=== PATIENT | female | born 1995 | race American Indian/Alaskan Native ===

== ENCOUNTER 2017-08-14 03:47 | Emergency (ER) | payer SELFPAY ==
[2017-08-14] MEDS ORDERED: LIDOCAINE VISCOUS 2% PO ONE (08:48)
[2017-08-14] MEDS ORDERED: MOTRIN PO ONE (08:48)
--- NOTE | 2017-08-14 09:33 | XRay Report ---
ROUTINE CHEST, TWO VIEWS: HISTORY: Difficulty breathing. The trachea, heart, mediastinal contour, lung mark and bony thorax are unremarkable. IMPRESSION: Normal chest x-ray.
--- NOTE | 2017-08-14 09:33 | XRay Report ---
AP AND LATERAL SOFT TISSUES OF THE NECK: History: Pain, discomfort, sensation of throat closing. Findings: The epiglottis is not enlarged. No prevertebral soft tissue swelling is apparent. No mass density or foreign body is evident. There is mild enlargement of the palatine and adenoid tonsils. There is mild narrowing of the airway at the level of the tonsils. IMPRESSION: Mild tonsillar enlargement.
[2017-08-14 09:39] LABS: Basophils % (Auto) 0.4 % (0.0-1.8); Eosinophils % (Auto) 0.9 % (0.0-4.3); Hematocrit 35.9 % (30.3-42.9); Mean Corpuscular HGB Conc 33 % (30-34); Mean Corpuscular Hemoglobin 28 pg (28-32); Mean Corpuscular Volume 83 fl (79-97); Platelet Count 302 K/mm3 (140-440); Red Blood Count 4.34 M/mm3 (3.65-5.03); Red Cell Distribution Width 13.5 % (13.2-15.2); White Blood Count 6.4 K/mm3 (4.5-11.0)
--- NOTE | 2017-08-14 09:52 | Emergency Department Report ---
ED ENT HPI - General Chief complaint: Sore Throat Stated complaint: SORE THROAT Time Seen by Provider: 08/14/17 08:32 Source: patient Mode of arrival: Ambulatory Limitations: No Limitations - History of Present Illness Initial comments: This is a 22-year-old female nontoxic, well nourished in appearance, no acute signs of distress presents to the ED with c/o of sore throat and sensation of throat closing x1 day. Patient denies any rash. Denies any shortness of breathe , fever, chills, nausea, vomiting, numbness, tingling, headache, or stiff neck. Patient states she does get intermittent chest pain, denies chest pain any. Patient denies any cough. Denies any past medical history or allergies. MD complaint: sore throat -: Gradual, days(s) (1) Location: throat Severity: mild Severity scale (0 -10): 8 Quality: aching Consistency: constant Improves with: none Worsens with: swallowing Associated Symptoms: pain with swallowing, sore throat. denies: fever, cough, gum swelling, toothache, tinnitus, hearing loss, discharge from ear, rhinorrhea - Related Data Previous Rx's Medication Instructions Recorded Last Taken Type Amoxicillin 500 mg PO Q12H #20 capsule 08/14/17 Unknown Rx Nystas/Diphen/Xyl Visc/Mylanta 15 ml MM Q8H 10 Days ud 08/14/17 Unknown Rx [Magic Mouthwash] Allergies Allergy/AdvReac Type Severity Reaction Status Date / Time No Known Allergies Allergy Unverified 08/14/17 04:19 ED Dental HPI - General Chief complaint: Sore Throat Stated complaint: SORE THROAT Time Seen by Provider: 08/14/17 08:32 Source: patient Mode of arrival: Ambulatory Limitations: No Limitations - Related Data Previous Rx's Medication Instructions Recorded Last Taken Type Amoxicillin 500 mg PO Q12H #20 capsule 08/14/17 Unknown Rx Nystas/Diphen/Xyl Visc/Mylanta 15 ml MM Q8H 10 Days ud 08/14/17 Unknown Rx [Magic Mouthwash] Allergies Allergy/AdvReac Type Severity Reaction Status Date / Time No Known Allergies Allergy Unverified 08/14/17 04:19 ED Review of Systems ROS: Stated complaint: SORE THROAT Other details as noted in HPI Constitutional: denies: chills, fever Eyes: denies: eye pain, eye discharge, vision change ENT: throat pain. denies: ear pain Respiratory: denies: cough, shortness of breath, wheezing Cardiovascular: denies: chest pain, palpitations Endocrine: no symptoms reported Gastrointestinal: denies: abdominal pain, nausea, diarrhea Genitourinary: denies: urgency, dysuria, discharge Musculoskeletal: denies: back pain, joint swelling, arthralgia Skin: denies: rash, lesions Neurological: denies: headache, weakness, paresthesias Psychiatric: denies: anxiety, depression Hematological/Lymphatic: denies: easy bleeding, easy bruising ED Past Medical Hx - Past Medical History Previous Medical History?: No - Surgical History Past Surgical History?: No - Social History Smoking Status: Current Every Day Smoker Substance Use Type: Marijuana - Medications Home Medications: Home Medications Medication Instructions Recorded Confirmed Last Taken Type Amoxicillin 500 mg PO Q12H #20 capsule 08/14/17 Unknown Rx Nystas/Diphen/Xyl Visc/Mylanta 15 ml MM Q8H 10 Days udc 08/14/17 Unknown Rx [Magic Mouthwash] ED Physical Exam - General Limitations: No Limitations General appearance: alert, in no apparent distress - Head Head exam: Present: atraumatic, normocephalic - Eye Eye exam: Present: normal appearance, PERRL, EOMI. Absent: scleral icterus, conjunctival injection, nystagmus, periorbital swelling, periorbital tenderness Pupils: Present: normal accommodation - ENT ENT exam: Present: mucous membranes moist, TM's normal bilaterally, normal external ear exam - Expanded ENT Exam Expanded Ear exam: Present: normal external inspection Mouth exam: Present: normal external inspection, tongue normal. Absent: drooling, trismus, muffled voice, tongue elevation, laceration Teeth exam: Present: normal inspection Throat exam: Positive: tonsillar erythema, tonsillomegaly (2+), tonsillar exudate, other (Uvula mildine with no abscess or swelling ntoed. ). Negative: R peritonsillar mass, L peritonsillar mass - Neck Neck exam: Present: normal inspection, full ROM. Absent: tenderness, meningismus, lymphadenopathy, thyromegaly - Respiratory Respiratory exam: Present: normal lung sounds bilaterally. Absent: respiratory distress, wheezes, rales, rhonchi, stridor, chest wall tenderness, accessory muscle use, decreased breath sounds, prolonged expiratory - Cardiovascular Cardiovascular Exam: Present: regular rate, normal rhythm, normal heart sounds. Absent: irregular rhythm, systolic murmur, diastolic murmur, rubs, gallop - GI/Abdominal GI/Abdominal exam: Present: soft, normal bowel sounds. Absent: distended, tenderness, guarding, rebound, rigid, diminished bowel sounds - Rectal Rectal exam: Present: deferred - Extremities Exam Extremities exam: Present: normal inspection, full ROM, normal capillary refill. Absent: tenderness, pedal edema, joint swelling, calf tenderness - Back Exam Back exam: Present: normal inspection, full ROM. Absent: tenderness, CVA tenderness (R), CVA tenderness (L), muscle spasm, paraspinal tenderness, vertebral tenderness, rash noted - Neurological Exam Neurological exam: Present: alert, oriented X3, CN II-XII intact, normal gait, reflexes normal - Psychiatric Psychiatric exam: Present: normal affect, normal mood - Skin Skin exam: Present: warm, dry, intact, normal color. Absent: rash ED Course Vital Signs 08/14/17 08/14/17 03:50 04:14 Temperature 98.1 F 98.1 F Pulse Rate 92 H 90 Respiratory 18 17 Rate Blood Pressure 114/62 114/62 O2 Sat by Pulse 99 99 Oximetry - Reevaluation(s) Reevaluation #1: 08/14/17 09:54 Patient is speaking in full sentences with no signs of distress noted. ED Medical Decision Making - Lab Data Result diagrams: 08/14/17 09:23 - Medical Decision Making This is a 22-year-old female presents with tonsillitis with exudate. Patient was examined by me and patient is stable. X-ray of chest and neck soft tissue obtained and the radiologist with normal examination and tonsillitis. Patient received Solu-Medrol prior to the x-rays due to sensation of throat closing. Patient also received viscous lidocaine. The patient's symptoms of sore throat and sensation of throat closing has subsided and improving. EKG normal sinus rhythm with no ST abnormalities. CBC, BMP, troponin, cardiac CK within normal limits. Patient was treated with amox at discharge. Patient was instructed Follow-up with a primary care doctor in 3-5 days or if symptoms worsen and continue return to emergency room as soon as possible. At time time of discharge, the patient does not seem toxic or ill in appearance. No acute signs of distress noted. Patient agrees to discharge treatment plan of care. No further questions noted by the patient. Critical care attestation.: If time is entered above; I have spent that time in minutes in the direct care of this critically ill patient, excluding procedure time. ED Disposition Clinical Impression: Tonsillitis with exudate Disposition: TO HOME OR SELFCARE Is pt being admited?: No Does the pt Need Aspirin: No Condition: Stable Instructions: Tonsillitis (ED), Amoxicillin (By mouth) Additional Instructions: Follow-up with a primary care doctor in 3-5 days or if symptoms worsen and continue return to emergency room as soon as possible. Prescriptions: Amoxicillin 500 mg PO Q12H #20 capsule Nystas/Diphen/Xyl Visc/Mylanta [Magic Mouthwash] 15 ml MM Q8H 10 Days ud Referrals: PRIMARY CAREMD [Primary Care Provider] - 3-5 Days ILIANA VALADEZ MD [Staff Physician] - 3-5 Days [facility] [Outside] - 3-5 Days [facility] [Outside] - 3-5 Days Forms: Work/School Release Form(ED)
[2017-08-14 10:08] LABS: Creatine Kinase MB 2.4 ng/mL (0.0-4.0)
[2017-08-14 10:09] LABS: Anion Gap 18 mmol/L; BUN/Creatinine Ratio 13; Blood Urea Nitrogen 10 mg/dL (7-17); Calcium 9.4 mg/dL (8.4-10.2); Carbon Dioxide 24 mmol/L (22-30); Chloride 101.5 mmol/L (98-107); Creatine Kinase 211 units/L (30-135); Glucose 85 mg/dL (65-100); Potassium 4.4 mmol/L (3.6-5.0); Sodium 139 mmol/L (137-145)
[2017-08-14 10:12] VITALS: BP 108/50
== END 2017-08-14 11:46 | disposition home or self-care (01) ==
LOC: ED 03:47
DX: J03.90 Acute tonsillitis, unspecified (principal); F12.10 Cannabis abuse, uncomplicated; F17.200 Nicotine dependence, unspecified, uncomplicated
CPT/HCPCS: 36415; 70360; 71020; 80048; 82550; 82553; 84484; 84703; 85025; 87116; 87430; 93005; 93010; 96372; 99284; J2930